=== PATIENT | male | born 1945 | race Caucasian/White ===

== ENCOUNTER 2024-06-02 14:51 | Outpatient (RCR) | payer MEDICARE, SELFPAY | END 2024-06-28 23:59 | disposition home or self-care (01) | LOC: SCTC 14:51 | PROVIDERS: PCP Student in an Organized Health Care Education/Training Program; Referring Provider Student in an Organized Health Care Education/Training Program; Visit Provider Radiology Therapeutic Radiology | DX: Z51.11 Encounter for antineoplastic chemotherapy (principal); C61 Malignant neoplasm of prostate | CPT/HCPCS: 96402; J9217 ==

== ENCOUNTER → 2024-06-11 | Outpatient (CLI) | payer MEDICARE, SELFPAY ==
[2024-06-11 15:02] LABS: Albumin, Serum 4.2 gm/dL (3.4-4.8); Anion Gap 5 (7-16); BUN/Creatinine Ratio 22 Ratio (12-20); Blood Urea Nitrogen 22 mg/dL (9-23); Calcium 9.2 mg/dL (8.3-10.6); Calcium (Corrected) 9.2 mg/dL (8.5-10.1); Carbon Dioxide 25.4 mMol/L (20.0-31.0); Chloride 111 mMol/L (98-107); Glucose 114 mg/dL (74-106); Osmolality,Calculated 285 (275-295); Phosphorous 2.6 mg/dL (2.4-5.1); Potassium 4.5 mMol/L (3.4-5.1); Sodium 141 mMol/L (136-145); eGFR > 60 See Note
== END | disposition home or self-care (01) ==
LOC: COPL 13:58
PROVIDERS: Referring Provider Internal Medicine Cardiovascular Disease; Visit Provider Internal Medicine Cardiovascular Disease
DX: I50.22 Chronic systolic (congestive) heart failure (principal); I49.3 Ventricular premature depolarization
CPT/HCPCS: 36415; 80069

== ENCOUNTER 2024-06-19 13:27 | Outpatient (AMB) | payer MEDICARE, SELFPAY ==
[2024-06-19 13:30] VITALS: BP 114/65; PULSE 57; RESP 18; TEMP 36.4; O2SAT 97; BMI 23.6
--- NOTE | 2024-06-19 13:30 | ACNOTE_ITS ---
Vital Signs 3 06/19/24 13:30 Height 1.83 m Height Method Stated Weight 78.925 kg Weight Measurement Method Standing Scale BMI 23.6 BP 114/65 Blood Pressure Source Automatic Cuff Blood Pressure Location Left Upper Arm Position Sitting Respiration 18 Pulse 57 L Pulse Source Monitor Temp 97.5 F Temp Source Oral Pulse Oximetry (%) 97 Oxygen Delivery Method Room Air Allergies/Meds Allergies & Medications Allergies No Known Allergies Allergy (Verified 06/19/24 13:32) Medication Reconciliation apixaban 5 mg tablet (Eliquis) 5 mg PO BID 03/13/24 [History Confirmed 06/19/24] aspirin 81 mg capsule,delayed release 81 mg PO DAILY 03/13/24 [History Confirmed 06/19/24] tamsulosin 0.4 mg capsule 0.4 mg PO QDAY 03/13/24 [History Confirmed 06/19/24] bumetanide 1 mg tablet 1 mg PO QDAY #30 tabs 04/17/24 [Rx Confirmed 06/19/24] carvedilol 12.5 mg tablet 12.5 mg PO BID #60 tabs 04/17/24 [Rx Confirmed 06/19/24] valsartan 160 mg tablet 160 mg PO BID #60 tabs 04/17/24 [Rx Confirmed 06/19/24] spironolactone 25 mg tablet 25 mg PO QDAY 04/21/24 [History Confirmed 06/19/24] prochlorperazine maleate 5 mg tablet 5 mg PO Q6HR PRN Nausea Or Vomiting 1 month #120 tabs 05/08/24 [Rx Confirmed 06/19/24] bicalutamide 50 mg tablet 50 mg PO QDAY 06/19/24 [History Confirmed 06/19/24] MA Intake Visit Data Collection New Patient or Established: Established Patient (seen at [facility] within 3 years) Seen by Clinical Staff ONLY (RN/MA): No Pain Present Currently: No Pain scale:: 0 Pain Scale Used: GriffithKatherineHernandez/Numerical PCP or OBGYN visit in last 3 months: Yes Do You Feel Safe at Home: Yes Authorities Contacted: N/A Smoking Status Smoking Status: Never smoker Immunization / Flu Flu Vaccine in the Last 12 Months: No Flu Vaccine Exclusion Criteria: No Exclusion Criteria Past Medical History Past Medical History NEUROLOGIC: Positive Peripheral Neuropathy; Negative Cerebrovascular Accident or Seizures CARDIAC: Positive Hypertension; Negative Hypercholesterolemia or Congestive Heart Failure RESPIRATORY: Positive Chronic Obstructive Pulmonary Disease (COPD), Pulmonary Embolism and Sleep Apnea; Negative Asthma GENITOURINARY: Positive Benign Prostatic Hyperplasia; Negative Renal Disease or Kidney Stones MUSCULOSKELETAL: Negative Fractures ENDOCRINE: Negative Diabetes Mellitus Type 1 or Diabetes Mellitus Type 2 HEMATOLOGIC: Negative Anemia PSYCHO/SOCIAL: Negative Depression or Anxiety OTHER HISTORY: Negative Falls or Cancer Social History SMOKING STATUS: Smoking status: Never smoker SECOND HAND EXPOSURE: second hand exposure: No ALCOHOL: Alcohol Intake: Current ALCOHOL FREQUENCY: Alcohol Intake Frequency: A Few Times a Month HOUSING: Housing: House LIVES WITH: Lives With: Family Patient Portal [employer] Social History Living Situation History Housing: House Housing Other:: Pt from home, where he lives with family. Tobacco History Smoking Status: Never smoker Second Hand Smoke Exposure: No Alcohol History Alcohol Intake: Current Alcohol Intake Frequency: A Few Times a Month Alcohol Intake Frequency Other:: special occations Domestic Abuse History Do You Feel Safe at Home: Yes Review of Systems Report any current symptoms Only answer those that you have currently: Past Medical History Past Medical History Have you ever been diagnosed with any of the following: Neurological Problems Cerebrovascular Accident (CVA): No Seizures: No Peripheral Neuropathy: Yes Cardiology Problems Hypercholesterolemia: No Congestive Heart Failure: No Hypertension: Yes Respiratory Problems Chronic Obstructive Pulmonary Disease (COPD): Yes Asthma: No Pulmonary Embolism: Yes Sleep Apnea: Yes Genital/Urinary Problems Renal Disease: No Kidney Stones: No Benign Prostatic Hyperplasia: Yes Musculoskeletal Problems Fractures: No Endocrine Problems Diabetes Mellitus Type 1: No Diabetes Mellitus Type 2: No Blood Problems Anemia: No Psychologic Problems Depression: No Anxiety: No Other Problems Falls: No Cancer: No History of Present Illness HPI Narrative Mr. Sultana is a 78-year-old male with past medical history significant for HFrEF (EF 20-25%), history of pulmonary embolism on Eliquis, osteoarthritis, pleural effusions s/p thoracentesis, prostate cancer with metastatic's disease to the bone and liver lesion measuring 18 mm, presents to the [facility] academic health clinic for a follow-up appointment. Since last visit patient saw Dr. Rodrigues at the cancer center who recommended immunotherapy without requiring the liver biopsy as patient is on Eliquis and there would be concern for bleeding. As patient has very high PSA and apparently bone mets with possible liver mets highly suspicious for prostate cancer metastasis. Patient started Lupron injection and Casodex orally. Patient has not experienced any side effects continues to feel the same as before. Upon physical examination I noticed a skin lesion on the left cheek, upon asking the patient patient stated that he has had this skin lesion for many years it has grown in size and it is pruritic and he believes it is skin cancer patient is recommended to follow-up with Dr. Rodrigues regarding the skin lesion. Patient has no other complaints today and does not need any refills. Review of Systems Review of Systems Systems Reviewed: All systems reviewed, normal except as documented Objective/Exam Narrative Physical exam: GENERAL: A&Ox3 . Awake, Not in acute distress NEURO: no focal neurological deficits HEENT: Atraumatic, Normocephalic. mucous membranes moist. Eyes open, symmetrical, & clear HEART: Normal Heart Sounds LUNGS: Clear to auscultation with no wheezing or crackles. ABDOMEN: soft, non-distended, non-tender, bowel sounds heard, no guarding or rebound tenderness SKIN: No Rash or ecchymoses. Lesion left face as per picture EXTREMITIES: No edema, tenderness, able to move all 4 extremities, pedal pulses palpated Assessment & Plan Diagnosis / Problem List (1) Metastases to the liver: Status: Acute Assessment & Plan: Pt. is being follow by Dr. Rodrigues at the [facility] -pt. started oral and injectable immunotherapy for prostate cancer Plan: -continue management per oncologist recommendation -will monitor for side affects (2) Skin lesion of face: Status: Acute Assessment & Plan: -Pt. noticed a skin lesion on left side of his face for several years -The skin lesion is enlarging in size and it is pruitic Plan: -follow up with oncology for possible diagosis Additional Assessment Attending note: I, Jignesh Gordon MD, attest that I was physically present for the hall portions of the service and evaluated the patient with the resident and I reviewed and discussed the case with the resident and agree with the resident's findings and plans of care as documented above. Patient on therapy presumptive prostate carcinoma with metastasis. No liver biopsy as patient is anticoagulated due to pulmonary embolus. Afebrile with stable vital signs. Skin lesion on cheek present many years. Suspect more likely to be benign seborrheic keratosis. Monitor for now, consider referral to dermatology or plastic surgery for biopsy. Jignesh Gordon MD Advanced Care Planning Advance care planning discussed with:: patient Physician Billing Established Patient Established Patient: E/M Level 3-CPT 79846 Office Procedures [facility] Level of Care Nursing/Assessment Patient Status: Established Patient Nursing Assessment/Reassessment: Medication Reconciliation, Update PMH in EMR and Vital Signs Coordination of Care: Complex Care and Chronic Disease 1-5, Education Complex Pt/Fam and Staff clarify orders Established Patient Charge Established Patient Point Assignment: 85 Established Patient Point Charge: Level 3 (80-115)
== END 2024-06-19 14:13 | disposition home or self-care (01) ==
LOC: HODAHC 13:27
PROVIDERS: Supervising Provider Internal Medicine
DX: L29.9 Pruritus, unspecified (principal); C61 Malignant neoplasm of prostate; C78.7 Secondary malignant neoplasm of liver and intrahepatic bile duct
CPT/HCPCS: 99213; G0463

== ENCOUNTER 2024-07-07 14:32 | Outpatient (RCR) | payer MEDICARE, SELFPAY | END 2024-07-29 23:59 | disposition home or self-care (01) | LOC: SCTC 14:32 | PROVIDERS: PCP Student in an Organized Health Care Education/Training Program; Referring Provider Student in an Organized Health Care Education/Training Program; Visit Provider Radiology Therapeutic Radiology | DX: Z51.11 Encounter for antineoplastic chemotherapy (principal); R97.20 Elevated prostate specific antigen [PSA] | CPT/HCPCS: 96402; J9217 ==

== ENCOUNTER → 2024-07-08 | Outpatient (CLI) | payer MEDICARE, SELFPAY ==
[2024-07-08 15:36] LABS: Basophils % (Auto) 0 % (0-2.5); Eosinophils # (Auto) 0.2 Thou/mm3 (0.0-0.5); Eosinophils % (Auto) 2 % (0-10); Hematocrit 33.8 % (41.0-53.0); Hemoglobin 11.2 g/dL (13.5-16.0); Immature Granulocytes % (Auto) 0 % (0-0); Immature Granulocytes Auto 0.03 Thou/mm3 (0.00-0.00); Lymphocytes # (Auto) 1.6 Thou/mm3 (1.0-4.8); Lymphocytes % (Auto) 21 % (10-50); Mean Corpuscular HGB Conc 33.1 g/dl (31.0-37.0); Mean Corpuscular Hemoglobin 30.9 pg (25.0-35.0); Mean Corpuscular Volume 93 fL (80-100); Monocytes # (Auto) 0.7 Thou/mm3 (0.0-0.8); Monocytes % (Auto) 9 % (0-12); Neutrophils # (Auto) 5.1 Thou/mm3 (1.8-7.7); Neutrophils % (Auto) 67 % (37-80); Nucleated Red Blood Cell % 0 /100 WBC (0); Platelet Count 254 Thou/mm3 (140-440); RDW Standard Deviation 49.5 fL (35.1-43.9); Red Blood Count 3.62 Miln/mm3 (4.50-5.90); White Blood Count 7.6 Thou/mm3 (3.8-10.6)
[2024-07-08 16:12] LABS: Prostate Specific Antigen 145.64 ng/mL (0-4.00)
== END | disposition home or self-care (01) ==
LOC: SCTO 14:51
PROVIDERS: Referring Provider Radiology Therapeutic Radiology; Visit Provider Radiology Therapeutic Radiology
DX: R97.20 Elevated prostate specific antigen [PSA] (principal)
CPT/HCPCS: 36415; 84153; 85025

== ENCOUNTER → 2024-08-06 | Outpatient (CLI) | payer MEDICARE, SELFPAY ==
[2024-08-06 15:59] LABS: Prostate Specific Antigen 26.08 ng/mL (0-4.00)
== END | disposition home or self-care (01) ==
PROVIDERS: Referring Provider Radiology Therapeutic Radiology; Visit Provider Radiology Therapeutic Radiology
DX: Z01.89 Encounter for other specified special examinations (principal)
CPT/HCPCS: 36415; 84153

== ENCOUNTER 2024-08-07 09:17 | Outpatient (RCR) | payer MEDICARE, SELFPAY ==
--- NOTE | 2024-08-06 16:43 | CTCFLWUP_ITS ---
[facility] [address] [place], [place] [address] FOLLOW-UP NOTE Date: 08/06/2024 MR#: [id number] Name: JEREMY ASHLEY : 1945 Dx: R97.2 Elevated prostate specific antigen [PSA] Patient with suspected prostate malignancy but biopsy could not be done for medical reasons. Patient had 1 Lupron injection along with Casodex PSA 07/08/2024 was surprisingly high at 145. Prior PSA was 53 on 03/15/2024. Will draw PSA today and suspend any future Lupron injections unless it shows benefit. Addendum.: PSA today is 26.08 clear benefit. Will thus continue with the Lupron injections. Electronically signed by: Forrest Rodrigues M.D. 08/06/2024 4:41 PM
== END 2024-08-29 23:59 | disposition home or self-care (01) ==
LOC: SCTC 09:17
PROVIDERS: Visit Provider Radiology Therapeutic Radiology
DX: Z51.11 Encounter for antineoplastic chemotherapy (principal); R97.20 Elevated prostate specific antigen [PSA]
CPT/HCPCS: 96402; 99212; J9217; G0463

== ENCOUNTER 2024-08-07 14:36 | Outpatient (AMB) | payer MEDICARE, SELFPAY ==
--- NOTE | 2024-08-22 10:13 | PD.RESCLINIC ---
Vital Signs 08/22/24 10:14 Height 1.83 m Height Method Stated Weight 78.935 kg Weight Measurement Method Standing Scale BMI 23.6 BP 135/83 H Blood Pressure Source Automatic Cuff Blood Pressure Location Left Upper Arm Position Sitting Respiration 17 Pulse 61 Pulse Source Monitor Temp 97.8 F Temp Source Oral Pulse Oximetry (%) 97 Oxygen Delivery Method Room Air Allergies/Meds Allergies & Medications Allergies No Known Allergies Allergy (Verified 08/22/24 10:15) Medication Reconciliation apixaban 5 mg tablet (Eliquis) 5 mg PO BID 03/13/24 [History Confirmed 08/22/24] aspirin 81 mg capsule,delayed release 81 mg PO DAILY 03/13/24 [History Confirmed 08/22/24] tamsulosin 0.4 mg capsule 0.4 mg PO QDAY 03/13/24 [History Confirmed 08/22/24] bumetanide 1 mg tablet 1 mg PO QDAY #30 tabs 04/17/24 [Rx Confirmed 08/22/24] carvedilol 12.5 mg tablet 12.5 mg PO BID #60 tabs 04/17/24 [Rx Confirmed 08/22/24] valsartan 160 mg tablet 160 mg PO BID #60 tabs 04/17/24 [Rx Confirmed 08/22/24] spironolactone 25 mg tablet 25 mg PO QDAY 04/21/24 [History Confirmed 08/22/24] prochlorperazine maleate 5 mg tablet 5 mg PO Q6HR PRN Nausea Or Vomiting 1 month #120 tabs 05/08/24 [Rx Confirmed 08/22/24] bicalutamide 50 mg tablet 50 mg PO QDAY 06/19/24 [History Confirmed 08/22/24] MA Intake Visit Data Collection New Patient or Established: Established Patient (seen at [facility] within 3 years) Seen by Clinical Staff ONLY (RN/MA): No Pain Present Currently: No Pain scale:: 0 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 Required: No PCP or OBGYN visit in last 3 months: Yes Hx Now: No Do You Feel Safe at Home: Yes Authorities Contacted: N/A Smoking Status Smoking Status: Never smoker Immunization / Flu Flu Vaccine in the Last 12 Months: No Flu Vaccine Exclusion Criteria: No Exclusion Criteria Past Medical History Past Medical History NEUROLOGIC: Positive Peripheral Neuropathy; Negative Cerebrovascular Accident or Seizures CARDIAC: Positive Hypertension; Negative Hypercholesterolemia or Congestive Heart Failure RESPIRATORY: Positive Chronic Obstructive Pulmonary Disease (COPD), Pulmonary Embolism and Sleep Apnea; Negative Asthma GENITOURINARY: Positive Benign Prostatic Hyperplasia; Negative Renal Disease or Kidney Stones MUSCULOSKELETAL: Negative Fractures ENDOCRINE: Negative Diabetes Mellitus Type 1 or Diabetes Mellitus Type 2 HEMATOLOGIC: Negative Anemia PSYCHO/SOCIAL: Negative Depression or Anxiety OTHER HISTORY: Negative Falls or Cancer Social History SMOKING STATUS: Smoking status: Never smoker SECOND HAND EXPOSURE: second hand exposure: No ALCOHOL: Alcohol Intake: Current ALCOHOL FREQUENCY: Alcohol Intake Frequency: A Few Times a Month HOUSING: Housing: House LIVES WITH: Lives With: Family Patient Portal [employer] Social History Living Situation History Housing: House Housing Other:: Pt from home, where he lives with family. Tobacco History Smoking Status: Never smoker Second Hand Smoke Exposure: No Alcohol History Alcohol Intake: Current Alcohol Intake Frequency: A Few Times a Month Alcohol Intake Frequency Other:: special occations Domestic Abuse History Do You Feel Safe at Home: Yes Review of Systems Report any current symptoms Only answer those that you have currently: Past Medical History Past Medical History Have you ever been diagnosed with any of the following: Neurological Problems Cerebrovascular Accident (CVA): No Seizures: No Peripheral Neuropathy: Yes Cardiology Problems Hypercholesterolemia: No Congestive Heart Failure: No Hypertension: Yes Respiratory Problems Chronic Obstructive Pulmonary Disease (COPD): Yes Asthma: No Pulmonary Embolism: Yes Sleep Apnea: Yes Genital/Urinary Problems Renal Disease: No Kidney Stones: No Benign Prostatic Hyperplasia: Yes Musculoskeletal Problems Fractures: No Endocrine Problems Diabetes Mellitus Type 1: No Diabetes Mellitus Type 2: No Blood Problems Anemia: No Psychologic Problems Depression: No Anxiety: No Other Problems Falls: No Cancer: No History of Present Illness HPI Narrative Mr. Sultana is a 78-year-old male with past medical history significant for HFrEF (EF 20-25%), history of pulmonary embolism on Eliquis, osteoarthritis, pleural effusions s/p thoracentesis, prostate cancer with metastatic's disease to the bone and liver lesion measuring 18 mm, presents to the [facility] academic health clinic for a follow-up appointment. Since last visit patient saw Dr. Rodrigues at the cancer center. Patient has continued Lupron injection and Casodex orally. Patient has not experienced any side effects continues to feel the same as before. Per oncologist report PSA has decreased to 26.08 therefore pt will continue with the Lupron injections Pt states he brought up the skin lesion on the left cheek with his oncologist who recommended the patient visit senior planning analyst. The lesion on his face does not appear to have increase in size or change in color. Pt states he used to see a senior planning analyst in [place] many years ago for a smiliar precancerous/cancerous (pt is unsure) lesion on his many years ago. Pt he belives that [employer] has since retired. Pt is requesting a refferal to senior planning analyst. Patient has no other complaints today, denies fever, chills, cough, sick contacts and does not need any refills. Review of Systems Review of Systems Systems Reviewed: All systems reviewed, normal except as documented Objective/Exam Narrative Physical exam: GENERAL: A&Ox3 . Awake, Not in acute distress NEURO: no focal neurological deficits HEENT: Atraumatic, Normocephalic. mucous membranes moist. Eyes open, symmetrical, & clear HEART: Normal Heart Sounds LUNGS: Clear to auscultation with no wheezing or crackles. ABDOMEN: soft, non-distended, non-tender, bowel sounds heard, no guarding or rebound tenderness SKIN: No Rash or ecchymoses. Lesion left face as per picture EXTREMITIES: No edema, tenderness, able to move all 4 extremities, pedal pulses palpated Assessment & Plan Diagnosis / Problem List (1) Skin lesion of face: Status: Acute Assessment & Plan: Pt states he brought up the skin lesion on the left cheek with his oncologist who recommended the patient visit senior planning analyst. The lesion on his face does not appear to have increase in size or change in color. Pt states he used to see a senior planning analyst in [place] many years ago for a smiliar precancerous/cancerous (pt is unsure) lesion on his many years ago. Pt he belives that [employer] has since retired. Pt is requesting a refferal to senior planning analyst. Plan: -pt is advised to keep the area clean and scratch it -Referral to dermatology Plan -referral to dermatology Office Procedures [facility] Level of Care Nursing/Assessment Patient Status: Established Patient Nursing Assessment/Reassessment: Medication Reconciliation, Update PMH in EMR and Vital Signs Coordination of Care: Complex Care and Chronic Disease 1-5, Consent,records obtained, informed consent, Education Simp Pt/Fam and Staff clarify orders Established Patient Charge Established Patient Point Assignment: 85 Established Patient Point Charge: Level 3 (28-115)
[2024-08-22 10:14] VITALS: BP 135/83; PULSE 61; RESP 17; TEMP 36.6; O2SAT 97; BMI 23.6
== END 2024-08-07 15:31 | disposition home or self-care (01) ==
LOC: HODAHC 14:36
PROVIDERS: Supervising Provider Internal Medicine
DX: L98.9 Disorder of the skin and subcutaneous tissue, unspecified (principal); C61 Malignant neoplasm of prostate; C78.7 Secondary malignant neoplasm of liver and intrahepatic bile duct; C79.51 Secondary malignant neoplasm of bone; Z86.711 Personal history of pulmonary embolism; Z79.01 Long term (current) use of anticoagulants; I50.20 Unspecified systolic (congestive) heart failure
CPT/HCPCS: 99213; G0463

== ENCOUNTER 2024-09-08 15:27 | Outpatient (RCR) | payer MEDICARE, SELFPAY | END 2024-09-26 23:59 | disposition home or self-care (01) | LOC: SCTC 15:27 | PROVIDERS: PCP Student in an Organized Health Care Education/Training Program; Referring Provider Student in an Organized Health Care Education/Training Program; Visit Provider Radiology Therapeutic Radiology | DX: Z51.11 Encounter for antineoplastic chemotherapy (principal); R97.20 Elevated prostate specific antigen [PSA] | CPT/HCPCS: 96402; J9217 ==

== ENCOUNTER 2024-09-11 14:07 | Outpatient (AMB) | payer MEDICARE, SELFPAY ==
--- NOTE | 2024-09-11 14:32 | ACNOTE_ITS ---
Vital Signs 09/11/24 14:33 Height 1.83 m Height Method Stated Weight 85.332 kg Weight Measurement Method Standing Scale BMI 25.4 BP 125/67 Blood Pressure Source Automatic Cuff Blood Pressure Location Left Upper Arm Position Sitting Respiration 18 Pulse 54 L Pulse Source Monitor Temp 97.3 F Temp Source Temporal Artery Scan Pulse Oximetry (%) 98 Oxygen Delivery Method Room Air Allergies/Meds Allergies & Medications Allergies No Known Allergies Allergy (Verified 09/11/24 14:33) Medication Reconciliation apixaban 5 mg tablet (Eliquis) 5 mg PO BID 03/13/24 [History Confirmed 09/11/24] aspirin 81 mg capsule,delayed release 81 mg PO DAILY 03/13/24 [History Confirmed 09/11/24] valsartan 160 mg tablet 160 mg PO BID #60 tabs 04/17/24 [Rx Confirmed 09/11/24] spironolactone 25 mg tablet 25 mg PO QDAY 04/21/24 [History Confirmed 09/11/24] prochlorperazine maleate 5 mg tablet 5 mg PO Q6HR PRN Nausea Or Vomiting 1 month #120 tabs 05/08/24 [Rx Confirmed 09/11/24] bicalutamide 50 mg tablet 50 mg PO QDAY 06/19/24 [History Confirmed 09/11/24] bumetanide 1 mg tablet 1 mg PO QDAY #30 tabs 09/11/24 [Rx] carvedilol 12.5 mg tablet 12.5 mg PO BID #60 tabs 09/11/24 [Rx] tamsulosin 0.4 mg capsule 0.8 mg (2 x 0.4 mg) PO QDAY #60 caps 09/11/24 [Rx] MA Intake Visit Data Collection New Patient or Established: Established Patient (seen at [facility] within 3 years) Seen by Clinical Staff ONLY (RN/MA): No Pain Present Currently: No Pain scale:: 0 Pain Scale Used: Griffith-Hernandez/Numerical Hydrator Operator Required: No PCP or OBGYN visit in last 3 months: Yes Hx Now: No Do You Feel Safe at Home: Yes Authorities Contacted: N/A Smoking Status Smoking Status: Never smoker Immunization / Flu Flu Vaccine in the Last 12 Months: No Flu Vaccine Exclusion Criteria: No Exclusion Criteria Past Medical History Past Medical History NEUROLOGIC: Positive Peripheral Neuropathy; Negative Cerebrovascular Accident or Seizures CARDIAC: Positive Hypertension; Negative Hypercholesterolemia or Congestive Heart Failure RESPIRATORY: Positive Chronic Obstructive Pulmonary Disease (COPD), Pulmonary Embolism and Sleep Apnea; Negative Asthma GENITOURINARY: Positive Benign Prostatic Hyperplasia; Negative Renal Disease or Kidney Stones MUSCULOSKELETAL: Negative Fractures ENDOCRINE: Negative Diabetes Mellitus Type 1 or Diabetes Mellitus Type 2 HEMATOLOGIC: Negative Anemia PSYCHO/SOCIAL: Negative Depression or Anxiety OTHER HISTORY: Negative Falls or Cancer Social History SMOKING STATUS: Smoking status: Never smoker SECOND HAND EXPOSURE: second hand exposure: No ALCOHOL: Alcohol Intake: Current ALCOHOL FREQUENCY: Alcohol Intake Frequency: A Few Times a Month HOUSING: Housing: House LIVES WITH: Lives With: Family Patient Portal [employer] Social History Living Situation History Housing: House Housing Other:: Pt from home, where he lives with family. Tobacco History Smoking Status: Never smoker Second Hand Smoke Exposure: No Alcohol History Alcohol Intake: Current Alcohol Intake Frequency: A Few Times a Month Alcohol Intake Frequency Other:: special occations Domestic Abuse History Do You Feel Safe at Home: Yes Review of Systems Report any current symptoms Only answer those that you have currently: Past Medical History Past Medical History Have you ever been diagnosed with any of the following: Neurological Problems Cerebrovascular Accident (CVA): No Seizures: No Peripheral Neuropathy: Yes Cardiology Problems Hypercholesterolemia: No Congestive Heart Failure: No Hypertension: Yes Respiratory Problems Chronic Obstructive Pulmonary Disease (COPD): Yes Asthma: No Pulmonary Embolism: Yes Sleep Apnea: Yes Genital/Urinary Problems Renal Disease: No Kidney Stones: No Benign Prostatic Hyperplasia: Yes Musculoskeletal Problems Fractures: No Endocrine Problems Diabetes Mellitus Type 1: No Diabetes Mellitus Type 2: No Blood Problems Anemia: No Psychologic Problems Depression: No Anxiety: No Other Problems Falls: No Cancer: No History of Present Illness HPI Narrative Mr. Sultana is a 78-year-old male with past medical history significant for HFrEF (EF 20-25%), history of pulmonary embolism on Eliquis, osteoarthritis, pleural effusions s/p thoracentesis, prostate cancer with metastatic's disease to the bone and liver lesion measuring 18 mm, presents to the [facility] academic health clinic for a follow-up appointment. Patient has no complaints today, denies fever, chills, cough, sick contacts. He requested refill for tamsulosin and carvedilol. He also said he discontinued Bumex about a month ago because he does not like the effect and thought he does not need it anymore. Patient continues to receive Lupron injections and follows up with Dr. Rodrigues. He is Po Casoex. He did not visit unit nurse yet regarding his skin lesion. It did not grow bigger or change appearance. Review of Systems Review of Systems Systems Reviewed: All systems reviewed, normal except as documented Objective/Exam Narrative Physical exam: Gen: Well-developed and well-nourished elderly male. HEENT: NCAT, PERRLA, EOMI, MMM, anicteric conjunctivae. CVS: normal S1 and S2. Regular bradycardia. No M/R/G. Resp: CTA B/L. No rhonchi, rales, crackles or wheezing. Abd: soft, non-tender, non-distended. BS+ in all 4 quadrants. MSK: Good ROM in BUE & BLE. Dry lesion over left cheek. Varicose veins and stasis dermatitis skin changes. Trace edema BLE. Neuro: CN II-XII grossly intact. Strength 5/5 in BUE & BLE. Alert and oriented x3. Psych: appropriate mood and affect. Assessment & Plan Diagnosis / Problem List (1) Congestive heart failure: Status: Acute Qualifiers: Heart failure type: systolic Heart failure chronicity: chronic Qualified Code(s): I50.22 - Chronic systolic (congestive) heart failure Assessment & Plan: Patient self discontinued Bumex about a month ago, he was explained importance of this medication and he agreed to resume it. He has clear lungs, trace edema BLE today. Plan: Resume Bumex 1 mg every other day. Coreg was refilled. (2) Prostate cancer: Status: Acute Assessment & Plan: Continues treatment with Dr. Rodrigues. Lupron injections and Po Casoex. Plan: Tamsulosin was refilled. (3) Skin lesion of face: Status: Acute Assessment & Plan: No change in lesion. Plan: Pending referral to dermatology. Additional Assessment Internal Medicine Attending Note: Case discussed with and agree with note and management plan of Resident Physician as per Resident's Note above. Issues of concern for present visit are as follows: Follow-up visit. History of heart failure with reduced ejection fraction of 20 to 25%. Patient discontinued Bumex, counseled regarding this and we will resume it. Continues to receive Lupron injections, following with radiation oncology for prostate carcinoma. Tamsulosin refilled. Has been referred to dermatology for skin lesion of face. Other needed refills provided today. Afebrile with stable vital signs today. Jignesh Gordon MD Advanced Care Planning Advance care planning discussed with:: patient Physician Billing Established Patient Established Patient: E/M Level 3-CPT 07124 Office Procedures [facility] Level of Care Nursing/Assessment Patient Status: Established Patient Nursing Assessment/Reassessment: Medication Reconciliation, Update PMH in EMR and Vital Signs Coordination of Care: Complex Care and Chronic Disease 1-5, Consent,records obtained, informed consent, Education Simp Pt/Fam and Staff clarify orders Established Patient Charge Established Patient Point Assignment: 85 Established Patient Point Charge: EP Level 3 (80-115)
[2024-09-11 14:33] VITALS: BP 125/67; PULSE 54; RESP 18; TEMP 36.3; O2SAT 98; BMI 25.4
== END 2024-09-11 15:34 | disposition home or self-care (01) ==
LOC: HODAHC 14:07
PROVIDERS: Supervising Provider Internal Medicine
DX: I50.22 Chronic systolic (congestive) heart failure (principal); C61 Malignant neoplasm of prostate; Z79.818 Long term (current) use of other agents affecting estrogen receptors and estrogen levels; L98.9 Disorder of the skin and subcutaneous tissue, unspecified
CPT/HCPCS: 99213; G0463

== ENCOUNTER 2024-10-06 14:51 | Outpatient (RCR) | payer MEDICARE, SELFPAY | END 2024-10-27 23:59 | disposition home or self-care (01) | LOC: SCTC 14:51 | PROVIDERS: PCP Student in an Organized Health Care Education/Training Program; Referring Provider Student in an Organized Health Care Education/Training Program; Visit Provider Radiology Therapeutic Radiology | DX: Z51.11 Encounter for antineoplastic chemotherapy (principal); R97.20 Elevated prostate specific antigen [PSA] | CPT/HCPCS: 96402; J9217 ==

== ENCOUNTER → 2024-11-03 | Outpatient (CLI) | payer MEDICARE, SELFPAY ==
[2024-11-03 13:22] LABS: Basophils % (Auto) 0 % (0-2.5); Eosinophils # (Auto) 0.3 Thou/mm3 (0.0-0.5); Eosinophils % (Auto) 5 % (0-10); Hematocrit 35.9 % (41.0-53.0); Hemoglobin 12.1 g/dL (13.5-16.0); Immature Granulocytes % (Auto) 0 % (0-0); Immature Granulocytes Auto 0.01 Thou/mm3 (0.00-0.00); Lymphocytes # (Auto) 1.5 Thou/mm3 (1.0-4.8); Lymphocytes % (Auto) 26 % (10-50); Mean Corpuscular HGB Conc 33.7 g/dl (31.0-37.0); Mean Corpuscular Hemoglobin 31.6 pg (25.0-35.0); Mean Corpuscular Volume 94 fL (80-100); Monocytes # (Auto) 0.6 Thou/mm3 (0.0-0.8); Monocytes % (Auto) 10 % (0-12); Neutrophils # (Auto) 3.3 Thou/mm3 (1.8-7.7); Neutrophils % (Auto) 58 % (37-80); Nucleated Red Blood Cell % 0 /100 WBC (0); Platelet Count 236 Thou/mm3 (140-440); RDW Standard Deviation 44.7 fL (35.1-43.9); Red Blood Count 3.83 Miln/mm3 (4.50-5.90); White Blood Count 5.6 Thou/mm3 (3.8-10.6)
[2024-11-03 13:26] LABS: Prostate Specific Antigen 4.54 ng/mL (0-4.00)
[2024-11-03 13:35] LABS: Alanine Aminotransferase 20 U/L (10-49); Albumin, Serum 4.5 gm/dL (3.4-4.8); Alkaline Phosphatase 106 U/L (46-116); Anion Gap 8 (7-16); Aspartate Amino Transferase 25 U/L (0-34); BUN/Creatinine Ratio 23 Ratio (12-20); Bilirubin,Total 0.7 mg/dL (0.3-1.2); Blood Urea Nitrogen 27 mg/dL (9-23); Chloride 106 mMol/L (98-107); Creatinine (Component) 1.2 mg/dL (0.6-1.3); Globulin 2.3 gm/dL (2.3-3.5); Glucose 111 mg/dL (74-106); Osmolality,Calculated 285 (275-295); Potassium 4.4 mMol/L (3.4-5.1); Sodium 140 mMol/L (136-145); Total Protein 6.8 gm/dL (5.7-8.2); eGFR > 60 See Note
== END | disposition home or self-care (01) ==
LOC: SCTO 11:59
DX: R97.20 Elevated prostate specific antigen [PSA] (principal)
CPT/HCPCS: 36415; 80053; 84153; 85025

== ENCOUNTER 2024-11-04 11:25 | Outpatient (RCR) | payer MEDICARE, SELFPAY ==
--- NOTE | 2024-11-04 12:28 | CTCFLWUP_ITS ---
[facility] [address] [place], [place] [address] FOLLOW-UP NOTE Date: 11/04/2024 MR#: [id number] Name: JEREMY ASHLEY : 1945 Dx: R97.2 Elevated prostate specific antigen [PSA] C61 prostate cancer. Identification. 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 Recommended against a biopsy. Ejection fraction found low at 25%. PSA was 145 on 07/08/2024. Bone scan 04/09/2024 showed widespread osseous mets disease. Patient agreed to Lupron injection and this dropped to 26 on 08/06/2024 and 4.5 on 11/03/2024. Patient please at the apparent good response with the 5 monthly Lupron injections given thus far. Patient also took p.o. Casodex. Considering the small but real potential cardiotoxicity of both Lupron and Casodex it was agreed upon that he will give him a holiday from his hormone manipulation meds for now. After 2 months break we will see him in 3 months with another PSA check. Electronically signed by: Forrest Rodrigues M.D. 11/04/2024 12:25 PM
== END 2024-11-26 23:59 | disposition home or self-care (01) ==
LOC: SCTC 11:25
PROVIDERS: Referring Provider Student in an Organized Health Care Education/Training Program; Visit Provider Radiology Therapeutic Radiology
DX: C61 Malignant neoplasm of prostate (principal); C79.51 Secondary malignant neoplasm of bone; Z86.711 Personal history of pulmonary embolism
CPT/HCPCS: 99212; G0463

== ENCOUNTER 2024-12-11 14:24 | Outpatient (AMB) | payer MEDICARE, SELFPAY ==
[2024-12-11 14:34] VITALS: BP 129/98; PULSE 66; RESP 14; TEMP 36.2; O2SAT 96; BMI 26.2
--- NOTE | 2024-12-11 14:34 | PD.RESCLINIC ---
Vital Signs 12/11/24 14:34 Height 1.83 m Height Method Stated Weight 88.054 kg Weight Measurement Method Standing Scale BMI 26.2 BP 129/98 H Blood Pressure Source Automatic Cuff Blood Pressure Location Left Upper Arm Position Sitting Respiration 14 Pulse 66 Pulse Source Monitor Temp 97.2 F Temp Source Oral Pulse Oximetry (%) 96 Oxygen Delivery Method Room Air Allergies/Meds Allergies & Medications Allergies No Known Allergies Allergy (Verified 12/11/24 14:35) Medication Reconciliation apixaban 5 mg tablet (Eliquis) 5 mg PO BID 03/13/24 [History Confirmed 12/11/24] aspirin 81 mg capsule,delayed release 81 mg PO DAILY 03/13/24 [History Confirmed 12/11/24] valsartan 160 mg tablet 160 mg PO BID #60 tabs 04/17/24 [Rx Confirmed 12/11/24] spironolactone 25 mg tablet 25 mg PO QDAY 04/21/24 [History Confirmed 12/11/24] prochlorperazine maleate 5 mg tablet 5 mg PO Q6HR PRN Nausea Or Vomiting 1 month #120 tabs 05/08/24 [Rx Confirmed 12/11/24] bicalutamide 50 mg tablet 50 mg PO QDAY 06/19/24 [History Confirmed 12/11/24] bumetanide 1 mg tablet 1 mg PO QDAY #30 tabs 09/11/24 [Rx Confirmed 12/11/24] carvedilol 12.5 mg tablet 12.5 mg PO BID #60 tabs 09/11/24 [Rx Confirmed 12/11/24] tamsulosin 0.4 mg capsule 0.8 mg (2 x 0.4 mg) PO QDAY #60 caps 09/11/24 [Rx Confirmed 12/11/24] MA Intake Visit Data Collection New Patient or Established: Established Patient (seen at [facility] within 3 years) Seen by Clinical Staff ONLY (RN/MA): No Reason for Visit:: FOLLOW UP Pain Present Currently: No Pain scale:: 0 Pain Scale Used: GriffithNavjot/Numerical Crew Chief Required: No PCP or OBGYN visit in last 3 months: Yes Hx Now: No Do You Feel Safe at Home: Yes Smoking Status Smoking Status: Never smoker Immunization / Flu Flu Vaccine in the Last 12 Months: Yes Flu Vaccine Exclusion Criteria: No Exclusion Criteria Past Medical History Past Medical History NEUROLOGIC: Positive Peripheral Neuropathy; Negative Cerebrovascular Accident or Seizures CARDIAC: Positive Hypertension; Negative Hypercholesterolemia or Congestive Heart Failure RESPIRATORY: Positive Chronic Obstructive Pulmonary Disease (COPD), Pulmonary Embolism and Sleep Apnea; Negative Asthma GENITOURINARY: Positive Benign Prostatic Hyperplasia; Negative Renal Disease or Kidney Stones MUSCULOSKELETAL: Negative Fractures ENDOCRINE: Negative Diabetes Mellitus Type 1 or Diabetes Mellitus Type 2 HEMATOLOGIC: Negative Anemia PSYCHO/SOCIAL: Negative Depression or Anxiety OTHER HISTORY: Negative Falls or Cancer Social History SMOKING STATUS: Smoking status: Never smoker SECOND HAND EXPOSURE: second hand exposure: No ALCOHOL: Alcohol Intake: Current ALCOHOL FREQUENCY: Alcohol Intake Frequency: A Few Times a Month HOUSING: Housing: House LIVES WITH: Lives With: Family Patient Portal Questionaires PHQ-9 PHQ-2 Over the last 2 weeks, how often have you been bothered by any of the following problems? 1. Little interest or pleasure in doing things: not at all 2. Feeling down, depressed, or hopeless: not at all Total score: 0 PHQ-9 3. Trouble falling or staying asleep, or sleeping too much: Not at all 4. Feeling tired or having little energy: Not at all 5. Poor appetite or overeating: Not at all 6. Feeling bad about yourself - or that you are a failure or have let yourself or your family down: Not at all 7. Trouble concentrating on things, such as reading the newspaper or watching television: Not at all 8. Moving or speaking so slowly that other people could have noticed? - Or the opposite - being so fidgety or restless that you have been moving around a lot more than usual: not at all 9. Thoughts that you would be better off or of hurting yourself in some way: Not at all Total score: 0 Source: Developed by Drs. Oleksandr Sequeira, Camryn Reynoso, Fernando Pickering and colleagues, with an educational janell from [employer]. Depression screen completed yes Social History Living Situation History Housing: House Housing Other:: Pt from home, where he lives with family. Tobacco History Smoking Status: Never smoker Second Hand Smoke Exposure: No Alcohol History Alcohol Intake: Current Alcohol Intake Frequency: A Few Times a Month Alcohol Intake Frequency Other:: special occations Domestic Abuse History Do You Feel Safe at Home: Yes Review of Systems Report any current symptoms Only answer those that you have currently: Past Medical History Past Medical History Have you ever been diagnosed with any of the following: Neurological Problems Cerebrovascular Accident (CVA): No Seizures: No Peripheral Neuropathy: Yes Cardiology Problems Hypercholesterolemia: No Congestive Heart Failure: No Hypertension: Yes Respiratory Problems Chronic Obstructive Pulmonary Disease (COPD): Yes Asthma: No Pulmonary Embolism: Yes Sleep Apnea: Yes Genital/Urinary Problems Renal Disease: No Kidney Stones: No Benign Prostatic Hyperplasia: Yes Musculoskeletal Problems Fractures: No Endocrine Problems Diabetes Mellitus Type 1: No Diabetes Mellitus Type 2: No Blood Problems Anemia: No Psychologic Problems Depression: No Anxiety: No Other Problems Falls: No Cancer: No History of Present Illness HPI Narrative Mr. Sultana is a 78-year-old male with past medical history significant for HFrEF (EF 20-25%), history of pulmonary embolism on Eliquis, osteoarthritis, pleural effusions s/p thoracentesis, prostate cancer with metastatic's disease to the bone and liver lesion measuring 18 mm. Patient was started on Lupron injection and Casodex orally April 2024. Pt presents to the [facility] clinic for a follow-up appointment. 12/11: Pt is in office for follow up appointment. Pt is currently off of both immunotherapy therapy (Lupron and Casodex) for 2 month holiday, will repeat labs in January and at that time Dr. Rodrigues will decide if pt will need to go back on therapy. PSA 11/03 is 4.54 which is significant decrease. Pt states he has been feeling great, no complains, denies recent illness, hospitalizations, SOB, chest pain or edema in the LE. Pt will be seeing Dr. Mejia next month, currently is off bumex as well (Pt states his feed handler is made aware and is ok with holding off on bumex). Labs from 11/03 are reviewed and vitals are stable. Pt is continuing healthy diet and exercise. Pt states he has not gotten around seeing a superintendent distribution yet for his skin lesion on left cheek. His oncologist is aware and referred the pt to superintendent distribution. No changes to the skin lesions is noted. No complaints today. Review of Systems Review of Systems Systems Reviewed: All systems reviewed, normal except as documented Objective/Exam Narrative Physical exam: GENERAL: A&Ox3 . well nourished, cooperative and pleasant elderly male, Not in acute distress NEURO: no focal neurological deficits noted HEENT: Atraumatic, Normocephalic. mucous membranes moist. Eyes open, symmetrical, & clear HEART: Normal Heart Sounds LUNGS: Clear to auscultation with no wheezing or crackles. ABDOMEN: soft, non-distended, non-tender, bowel sounds heard, no guarding or rebound tenderness SKIN: No Rash or ecchymoses, left cheek dry lesion, no changes in size or color noted from previous visit (picture on file) EXTREMITIES: No edema, tenderness, able to move all 4 extremities, pedal pulses palpated, Varicose veins and stasis dermatitis noted bilaterally. Assessment & Plan Diagnosis / Problem List (1) Prostate cancer: Status: Acute Assessment & Plan: -Pt was diagnosesd with prostate cancer in March 2024 and was started on Lupron injection and Casodex orally April 2024 Plan: -continue to follow up outpatient with oncology, Pt next appointment at the cancer center is in January -Repeat labs (ordered by Oncologist) in january and follow up at the [facility] for follow up Advanced Care Planning Advance care planning discussed with:: patient Office Procedures [facility] Level of Care Nursing/Assessment Patient Status: Established Patient Nursing Assessment/Reassessment: Medication Reconciliation, Update PMH in EMR and Vital Signs Coordination of Care: Complex Care and Chronic Disease 1-5, Consent,records obtained, informed consent, Education Simp Pt/Fam, Lab and Imaging orders, Results/Orders obtained and Staff clarify orders Established Patient Charge Established Patient Point Assignment: 105 Established Patient Point Charge: EP Level 3 (80-115)
== END 2024-12-11 15:10 | disposition home or self-care (01) ==
LOC: HODAHC 14:24
PROVIDERS: Supervising Provider Internal Medicine
DX: C61 Malignant neoplasm of prostate (principal); Z79.818 Long term (current) use of other agents affecting estrogen receptors and estrogen levels
CPT/HCPCS: 99213; G0463

== ENCOUNTER → 2025-02-02 | Outpatient (CLI) | payer MEDICARE, SELFPAY ==
[2025-02-02 09:50] LABS: Prostate Specific Antigen 60.34 ng/mL (0-4.00)
== END | disposition home or self-care (01) ==
LOC: COPL 08:22
PROVIDERS: Referring Provider Radiology Therapeutic Radiology; Visit Provider Radiology Therapeutic Radiology
DX: R97.20 Elevated prostate specific antigen [PSA] (principal)
CPT/HCPCS: 36415; 84153

== ENCOUNTER 2025-02-03 10:54 | Outpatient (RCR) | payer MEDICARE, SELFPAY ==
--- NOTE | 2025-02-03 13:03 | CTCFLWUP_ITS ---
[facility] [address] [place], [place] [address] FOLLOW-UP NOTE Date: 02/03/2025 MR#: [id number] Name: JEREMY ASHLEY : 1945 Dx: R97.2 Elevated prostate specific antigen [PSA] Identification. 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 Recommended by c ardiologist against biopsy. Ejection fraction found to be low at 25%. PSA 145 07/08/2024. Bone scan 04/09/2024 showed widespread osseous mets disease. Patient agreed to Lupron injection and this dropped to 26 2024 and 4.5 in 11/03/2024. Had 5 monthly injections of Lupron along with Casodex last dose of 10/06/2024. He did not like the side effect of the meds, including making feel tired as well as hot flashes. PSA off the hormone manipulating meds had risen to 61. Patient denies any bone pain and said he feels well off the Lupron and Casodex. Prefers to be off all hormonal therapy and check his PSA in 3 months. I gave him lab slip for PSA in 3 months and follow-up then as well. Electronically signed by: Forrest Rodrigues M.D. 02/03/2025 1:01 PM
== END 2025-02-26 23:59 | disposition home or self-care (01) ==
LOC: SCTC 10:54
PROVIDERS: Visit Provider Radiology Therapeutic Radiology
DX: R97.20 Elevated prostate specific antigen [PSA] (principal); Z86.711 Personal history of pulmonary embolism; Z79.01 Long term (current) use of anticoagulants; I42.9 Cardiomyopathy, unspecified; I50.20 Unspecified systolic (congestive) heart failure; C79.51 Secondary malignant neoplasm of bone
CPT/HCPCS: 99212; G0463

== ENCOUNTER → 2025-05-05 | Outpatient (CLI) | payer MEDICARE, SELFPAY ==
[2025-05-05 09:24] LABS: Prostate Specific Antigen 286.40 ng/mL (0-4.00)
== END | disposition home or self-care (01) ==
PROVIDERS: Referring Provider Radiology Therapeutic Radiology; Visit Provider Radiology Therapeutic Radiology
DX: R97.20 Elevated prostate specific antigen [PSA] (principal); C61 Malignant neoplasm of prostate
CPT/HCPCS: 36415; 84153

== ENCOUNTER 2025-05-07 15:09 | Outpatient (RCR) | payer MEDICARE, SELFPAY ==
--- NOTE | 2025-05-06 15:27 | CTCFLWUP_ITS ---
[facility] [address] [place], [place] [address] FOLLOW-UP NOTE Date: 05/06/2025 MR#: [id number] Name: JEREMY ASHLEY : 1945 Dx: R97.2 Elevated prostate specific antigen [PSA] Identification. 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 Recommended against biopsy by poultry processing supervisor. Ejection fraction low at 25%. PSA was 145 08/10/2023. Bone scan 04/09/2024 showed widespread osseous mets disease. Agreed to Lupron injection and this dropped to 4.5 and 11/03/2024. Did not like the side effects of hot flashes etc. and wished to have a holiday. Unfortunately PSA ortega to 286 on 05/05/2025. Patient agrees to need to resume the Lupron injections. The possibility of using a different LHRH antagonist such as Relugolix was discussed. Considering the previous Lupron injections were safe and effective decision made to continue with this. Nevertheless considering his severe cardiac condition that serious side effects may occur which was discussed with patient and son.. Electronically signed by: Forrest Rodrigues M.D. 05/06/2025 3:25 PM
== END 2025-05-29 23:59 | disposition home or self-care (01) ==
LOC: SCTC 15:09
PROVIDERS: Visit Provider Radiology Therapeutic Radiology
DX: Z51.11 Encounter for antineoplastic chemotherapy (principal); R97.20 Elevated prostate specific antigen [PSA]; C79.51 Secondary malignant neoplasm of bone; Z86.711 Personal history of pulmonary embolism; Z79.01 Long term (current) use of anticoagulants; I50.20 Unspecified systolic (congestive) heart failure; I42.9 Cardiomyopathy, unspecified
CPT/HCPCS: 96402; 99213; J9217; G0463

== ENCOUNTER 2025-06-08 13:35 | Outpatient (RCR) | payer MEDICARE, SELFPAY | END 2025-06-28 23:59 | disposition home or self-care (01) | LOC: SCTC 13:35 | PROVIDERS: Referring Provider Radiology Therapeutic Radiology; Visit Provider Radiology Therapeutic Radiology | DX: R97.20 Elevated prostate specific antigen [PSA] (principal); Z86.711 Personal history of pulmonary embolism; Z79.01 Long term (current) use of anticoagulants | CPT/HCPCS: 96402; J9217 ==

== ENCOUNTER 2025-07-15 13:00 | Outpatient (AMB) | payer MEDICARE, SELFPAY ==
[2025-07-15 13:08] VITALS: BP 172/84; PULSE 58; RESP 19; TEMP 36.9; O2SAT 96; BMI 24.7
--- NOTE | 2025-07-15 13:08 | PD.RESCLINIC ---
Vital Signs 07/15/25 13:08 Height 1.83 m Height Method Stated Weight 82.781 kg Weight Measurement Method Standing Scale BMI 24.7 BP 172/84 H Blood Pressure Source Automatic Cuff Blood Pressure Location Right Upper Arm Position Sitting Respiration 19 Pulse 58 L Pulse Source Monitor Temp 98.4 F Temp Source Temporal Artery Scan Pulse Oximetry (%) 96 Oxygen Delivery Method Room Air Allergies/Meds Allergies & Medications Allergies No Known Allergies Allergy (Verified 07/15/25 13:10) Medication Reconciliation apixaban 5 mg tablet (Eliquis) 5 mg PO BID 03/13/24 [History Confirmed 07/15/25] aspirin 81 mg capsule,delayed release 81 mg PO DAILY 03/13/24 [History Confirmed 07/15/25] valsartan 160 mg tablet 160 mg PO BID #60 tabs 04/17/24 [Rx Confirmed 07/15/25] spironolactone 25 mg tablet 25 mg PO QDAY 04/21/24 [History Confirmed 07/15/25] prochlorperazine maleate 5 mg tablet 5 mg PO Q6HR PRN Nausea Or Vomiting 1 month #120 tabs 05/08/24 [Rx Confirmed 07/15/25] bicalutamide 50 mg tablet 50 mg PO QDAY 06/19/24 [History Confirmed 07/15/25] bumetanide 1 mg tablet 1 mg PO QDAY #30 tabs 09/11/24 [Rx Confirmed 07/15/25] carvedilol 12.5 mg tablet 12.5 mg PO BID #60 tabs 09/11/24 [Rx Confirmed 07/15/25] tamsulosin 0.4 mg capsule 0.8 mg (2 x 0.4 mg) PO QDAY #60 caps 05/07/25 [Rx Confirmed 07/15/25] MA Intake Visit Data Collection New Patient or Established: Established Patient (seen at [facility] within 3 years) Seen by Clinical Staff ONLY (RN/MA): No Pain Present Currently: No Pain scale:: 0 Pain Scale Used: GriffithNavjot/Numerical Ui Software Developer Required: No PCP or OBGYN visit in last 3 months: Yes Do You Feel Safe at Home: Yes Authorities Contacted: N/A Smoking Status Smoking Status: Never smoker Immunization / Flu Flu Vaccine in the Last 12 Months: No Flu Vaccine Exclusion Criteria: Refused by Patient Past Medical History Past Medical History NEUROLOGIC: Positive Peripheral Neuropathy; Negative Cerebrovascular Accident or Seizures CARDIAC: Positive Hypertension; Negative Hypercholesterolemia or Congestive Heart Failure RESPIRATORY: Positive Chronic Obstructive Pulmonary Disease (COPD), Pulmonary Embolism and Sleep Apnea; Negative Asthma GENITOURINARY: Positive Benign Prostatic Hyperplasia; Negative Renal Disease or Kidney Stones MUSCULOSKELETAL: Negative Fractures ENDOCRINE: Negative Diabetes Mellitus Type 1 or Diabetes Mellitus Type 2 HEMATOLOGIC: Negative Anemia PSYCHO/SOCIAL: Negative Depression or Anxiety OTHER HISTORY: Negative Falls or Cancer Social History SMOKING STATUS: Smoking status: Never smoker SECOND HAND EXPOSURE: second hand exposure: No ALCOHOL: Alcohol Intake: Current ALCOHOL FREQUENCY: Alcohol Intake Frequency: A Few Times a Month HOUSING: Housing: House LIVES WITH: Lives With: Family Patient Portal Questionaires PHQ-9 PHQ-2 Over the last 2 weeks, how often have you been bothered by any of the following problems? 1. Little interest or pleasure in doing things: not at all 2. Feeling down, depressed, or hopeless: not at all Total score: 0 PHQ-9 8. Moving or speaking so slowly that other people could have noticed? - Or the opposite - being so fidgety or restless that you have been moving around a lot more than usual: not at all Source: Developed by Drs. Oleksandr Sequeira, Camryn Reynoso, Fernando Pickering and colleagues, with an educational janell from [employer]. Social History Living Situation History Housing: House Housing Other:: Pt from home, where he lives with family. Tobacco History Smoking Status: Never smoker Second Hand Smoke Exposure: No Alcohol History Alcohol Intake: Current Alcohol Intake Frequency: A Few Times a Month Alcohol Intake Frequency Other:: special occations Domestic Abuse History Do You Feel Safe at Home: Yes Review of Systems Report any current symptoms Only answer those that you have currently: Past Medical History Past Medical History Have you ever been diagnosed with any of the following: Neurological Problems Cerebrovascular Accident (CVA): No Seizures: No Peripheral Neuropathy: Yes Cardiology Problems Hypercholesterolemia: No Congestive Heart Failure: No Hypertension: Yes Respiratory Problems Chronic Obstructive Pulmonary Disease (COPD): Yes Asthma: No Pulmonary Embolism: Yes Sleep Apnea: Yes Genital/Urinary Problems Renal Disease: No Kidney Stones: No Benign Prostatic Hyperplasia: Yes Musculoskeletal Problems Fractures: No Endocrine Problems Diabetes Mellitus Type 1: No Diabetes Mellitus Type 2: No Blood Problems Anemia: No Psychologic Problems Depression: No Anxiety: No Other Problems Falls: No Cancer: No History of Present Illness HPI Narrative Mr. Sultana is a 78-year-old male with past medical history significant for HFrEF (EF 20-25%), history of pulmonary embolism on Eliquis, osteoarthritis, pleural effusions s/p thoracentesis, prostate cancer with metastatic's disease to the bone and liver lesion measuring 18 mm. Patient was started on Lupron injection and Casodex orally April 2024. Pt presents to the [facility] for a follow-up appointment. 12/11: Pt is in office for follow up appointment. Pt is currently off of both immuno-therapy therapy (Lupron and Casodex) for 2 month holiday, will repeat labs in January and at that time Dr. Rodrigues will decide if pt will need to go back on therapy. PSA 11/03 is 4.54 which is significant decrease. Pt states he has been feeling great, no complains, denies recent illness, hospitalizations, SOB, chest pain or edema in the LE. Pt will be seeing Dr. Mejia next month, currently is off Bumex as well (Pt states his vice president marketing & development is made aware and is ok with holding off on bumex). Labs from 11/03 are reviewed and vitals are stable. Pt is continuing healthy diet and exercise. Pt states he has not gotten around seeing a retail account executive yet for his skin lesion on left cheek. His oncologist is aware and referred the pt to retail account executive. No changes to the skin lesions is noted. No complaints today. 07/15: Pt is in office for a follow up visit. Pt is seen BP is elevated, in office reading is 172/84 Pt states he saw his vice president marketing & development Dr. Mejia yesterday and his BP was elevated and his Coreg was decreased to 6.25 BID and Valsartan was increased 160mg BID. Although pt was prescribed valsartan BID he was taking it once daily. Pt also had a repeat echo a week ago at his vice president marketing & development office and was told his EF increased to above 70% from previous EF of 25%. PSA in April was 286 and Pt was restarted on lupron injections once a month by the oncologist. (So far he has already taken April, May and Jun) Will repeat PSA and CBC, CMP in July. Pt has not seen a retail account executive for his lesion on his face. Pt denies any chest pain, palpitations, shortness of breath or orthopnea. Pt only takes the bumex when he notices edema in the LE. . Review of Systems Review of Systems Systems Reviewed: All systems reviewed, normal except as documented Objective/Exam Narrative Physical exam: GENERAL: A&Ox3 . Awake, Not in acute distress NEURO: no focal neurological deficits HEENT: Atraumatic, Normocephalic. mucous membranes moist. Eyes open, symmetrical, & clear HEART: Normal Heart Sounds LUNGS: Clear to auscultation with no wheezing or crackles. ABDOMEN: soft, non-distended, non-tender, bowel sounds heard, no guarding or rebound tenderness SKIN: No Rash or ecchymoses, lesion on his face appears to be dry crusted over, same size as previous imaging on file. EXTREMITIES: No edema, tenderness, able to move all 4 extremities, pedal pulses palpated Assessment & Plan Diagnosis / Problem List (1) Prostate cancer: Status: Acute Assessment & Plan: -PSA in April 2025 286 from previous PSA of 4.54 (For which pt took a 3 month holiday). -Pt has receive lupron injection for april, may and Jun Plan: -Continue lupron injections as recommended by oncologist -Follow up with radiation oncologist Dr. Rodrigues -repeat PSA and other labs before next appointment (2) Primary hypertension: Status: Acute Assessment & Plan: -Pt reports for the last few visits to the Doctors office he has notices his BP has been elevated. -BP today in office is 172/84 Plan: -Pt's vice president marketing & development adjusted the HTN meds to Coreg 6.25 BID and Valsartan 160mg BID -Continue to check BP daily and keep a log Advanced Care Planning Advance care planning discussed with:: patient Office Procedures [facility] Level of Care Nursing/Assessment Patient Status: Established Patient Nursing Assessment/Reassessment: Medication Reconciliation, Update PMH in EMR and Vital Signs Coordination of Care: Complex Care and Chronic Disease 1-5, Complex Care/Chronic Disease 5 or more, Consent,records obtained, informed consent, Lab and Imaging orders, Results/Orders obtained and Staff clarify orders Established Patient Charge Established Patient Point Assignment: 125 Established Patient Point Charge: EP Level 4 (120-155)
== END 2025-07-15 13:42 | disposition home or self-care (01) ==
LOC: HODAHC 13:00
PROVIDERS: Supervising Provider Internal Medicine
DX: C61 Malignant neoplasm of prostate (principal); I10 Essential (primary) hypertension
CPT/HCPCS: 99214; G0463

== ENCOUNTER → 2025-07-27 | Outpatient (CLI) | payer MEDICARE, SELFPAY ==
[2025-07-27 15:45] LABS: Basophils # (Auto) 0.0 Thou/mm3 (0.0-0.2); Basophils % (Auto) 0 % (0-2.5); Eosinophils # (Auto) 0.1 Thou/mm3 (0.0-0.5); Eosinophils % (Auto) 2 % (0-10); Hematocrit 40.3 % (41.0-53.0); Hemoglobin 13.2 g/dL (13.5-16.0); Immature Granulocytes Auto 0.02 Thou/mm3 (0.00-0.00); Lymphocytes # (Auto) 2.1 Thou/mm3 (1.0-4.8); Lymphocytes % (Auto) 27 % (10-50); Mean Corpuscular HGB Conc 32.8 g/dl (31.0-37.0); Mean Corpuscular Hemoglobin 31.0 pg (25.0-35.0); Mean Corpuscular Volume 95 fL (80-100); Monocytes # (Auto) 0.8 Thou/mm3 (0.0-0.8); Monocytes % (Auto) 10 % (0-12); Neutrophils # (Auto) 4.7 Thou/mm3 (1.8-7.7); Neutrophils % (Auto) 61 % (37-80); Nucleated Red Blood Cell # 0.00 Thou/mm3 (0.00-0.00); Nucleated Red Blood Cell % 0 /100 WBC (0); Platelet Count 275 Thou/mm3 (140-440); RDW Standard Deviation 45.1 fL (35.1-43.9); Red Blood Count 4.26 Miln/mm3 (4.50-5.90); White Blood Count 7.8 Thou/mm3 (3.8-10.6)
[2025-07-27 16:05] LABS: Prostate Specific Antigen 49.64 ng/mL (0-4.00)
[2025-07-27 16:08] LABS: Alanine Aminotransferase 34 U/L (10-49); Albumin, Serum 5.0 gm/dL (3.4-4.8); Albumin/Globulin Ratio 1.9 (1.2-2.2); Alkaline Phosphatase 137 U/L (46-116); Anion Gap 12 (7-16); Aspartate Amino Transferase 33 U/L (0-34); BUN/Creatinine Ratio 18 Ratio (12-20); Bilirubin,Total 0.6 mg/dL (0.3-1.2); Blood Urea Nitrogen 22 mg/dL (9-23); Calcium 10.3 mg/dL (8.3-10.6); Calcium (Corrected) 10.3 mg/dL (8.5-10.1); Carbon Dioxide 26.4 mMol/L (20.0-31.0); Chloride 108 mMol/L (98-107); Creatinine (Component) 1.2 mg/dL (0.6-1.3); Globulin 2.7 gm/dL (2.3-3.5); Glucose 112 mg/dL (74-106); Osmolality,Calculated 294 (275-295); Potassium 4.5 mMol/L (3.4-5.1); Sodium 146 mMol/L (136-145); Total Protein 7.7 gm/dL (5.7-8.2); eGFR > 60 See Note
== END | disposition home or self-care (01) ==
LOC: SCTO 14:22
PROVIDERS: Referring Provider Radiology Therapeutic Radiology; Visit Provider Radiology Therapeutic Radiology
DX: R97.20 Elevated prostate specific antigen [PSA] (principal); C61 Malignant neoplasm of prostate
CPT/HCPCS: 36415; 80053; 84153; 85025